=== PATIENT | male | born 1970 | race Caucasian/White ===

== ENCOUNTER 2017-04-23 10:38 | Emergency (ER) | payer MEDICARE, MEDICAID ==
[~2017-04-23] VITALS: Ht 175.3 cm; Wt 98.6 kg
[~2017-04-23 10:38] MED LIST: BENZ1LOZ30 PO; CITA20TA11 PO; GABA-338 PO; HYDR12.522 PO; IBUP-1984 PO; LEVO50TA8 PO; NORCO10T PO
[2017-04-23] MEDS ORDERED: HYDROcodone/acetaminophen 5mg/325mg tablet PO ONE (11:45)
[2017-04-23] MEDS ORDERED: naproxen 500mg tablet PO ONE (11:45)
[2017-04-23] MEDS ORDERED: HYDR-3965 PO (12:38)
[2017-04-23] MEDS ORDERED: IBUP-1986 PO (12:38)
[2017-04-23] MEDS ORDERED: ONDA4TAB12 PO (12:38)
[2017-04-23 12:56] VITALS: BP 170/116
== END 2017-04-23 12:47 | disposition home or self-care (01) ==
LOC: ER 10:39
DX: S22.41XA Multiple fractures of ribs, right side, initial encounter for closed fracture (principal); F12.10 Cannabis abuse, uncomplicated; F17.210 Nicotine dependence, cigarettes, uncomplicated; I10 Essential (primary) hypertension; G89.29 Other chronic pain; Z98.890 Other specified postprocedural states; Z79.899 Other long term (current) drug therapy; X50.1XXA Overexertion from prolonged static or awkward postures, initial encounter; Y93.89 Activity, other specified; Y92.89 Other specified places as the place of occurrence of the external cause; Y99.9 Unspecified external cause status
CPT/HCPCS: 71101; 99284

== ENCOUNTER 2019-04-01 08:54 | Emergency (ER) | payer MEDICARE, MEDICAID ==
[~2019-04-01] VITALS: Ht 175.3 cm; Wt 83.0 kg
[~2019-04-01 08:54] MED LIST changes: -CITA20TA11 PO; +CITA20TA28 PO; +IBUP-1986 PO; +ONDA4TAB12 PO
[2019-04-01] MEDS ORDERED: orphenadrine citrate 60mg/2ml inj. IM ONE (10:00)
[2019-04-01] MEDS ORDERED: ketorolac tromethamine 15mg/ml inj. IM ONE (10:00)
[2019-04-01] MEDS ORDERED: IBUP-1985 PO (10:01)
[2019-04-01] MEDS ORDERED: METH-360 PO (10:01)
[2019-04-01 10:40] VITALS: BP 167/107
== END 2019-04-01 10:45 | disposition home or self-care (01) ==
LOC: ER 08:54
DX: M54.5 Low back pain (principal); G89.29 Other chronic pain; I10 Essential (primary) hypertension; F12.90 Cannabis use, unspecified, uncomplicated; Z71.6 Tobacco abuse counseling; Z79.899 Other long term (current) drug therapy
CPT/HCPCS: 96372; 99284; J1885; J2360

== ENCOUNTER 2019-04-03 10:43 | Emergency (ER) | payer MEDICARE, MEDICAID ==
[~2019-04-03] VITALS: Ht 175.3 cm; Wt 80.0 kg
[~2019-04-03 10:43] MED LIST changes: +IBUP-1985 PO; +METH-360 PO
[2019-04-03] MEDS ORDERED: aspirin 325mg tablet PO ONE (11:00)
[2019-04-03] MEDS: nitroGLYCERIN 0.4mg SUBLingual tab SL PRN ×3 (11:12→11:22)
[2019-04-03 11:30] LABS: BASOPHILS # (AUTO) 0.1 X10'3 (0-0.2); BASOPHILS % (AUTO) 1.5 % (0-1); EOSINOPHILS # (AUTO) 0.5 X10'3 (0-0.9); EOSINOPHILS % (AUTO) 5.7 % (0-6); HEMATOCRIT 45.5 % (42.0-52.0); HEMOGLOBIN 15.8 g/dl (14.0-17.9); LYMPHOCYTES % (AUTO) 23.7 % (21-51); MEAN CORPUSCULAR HGB CONC 34.8 g/dL (33.0-36.5); MEAN PLATELET VOLUME 7.1 FL (7.4-10.4); MONOCYTES # (AUTO) 0.5 X10'3 (0-0.9); MONOCYTES % (AUTO) 5.8 % (2-12); NEUTROPHILS # (AUTO) 5.5 X10'3 (1.8-7.7); NEUTROPHILS % (AUTO) 63.3 % (42-75); PLATELET COUNT 319 X10'3 (140-440); RED BLOOD COUNT 4.95 X10'6 (4.70-6.10); RED CELL DISTRIBUTION WIDTH 13.9 % (11.5-14.5); WHITE BLOOD COUNT 8.6 X10'3 (4.5-11.0)
[2019-04-03] MEDS ORDERED: acetaminophen 325mg tablet PO ONE (11:30)
[2019-04-03 11:42] LABS: ALANINE AMINOTRANSFERASE 39 U/L (12-78); ALBUMIN 4.3 G/DL (3.4-5.0); ALBUMIN/GLOBULIN RATIO 1.3 (1.1-1.5); ALKALINE PHOSPHATASE 91 IU/L (46-116); ANION GAP 9 (8-16); ASPARTATE AMINO TRANSFERASE 23 U/L (10-37); BILIRUBIN,TOTAL 0.4 MG/DL (0.1-1.0); BLOOD UREA NITROGEN 13 MG/DL (7-18); BUN/CREATININE RATIO 10.1 (5.4-32.0); CALCIUM 9.1 MG/DL (8.5-10.1); CHLORIDE 102 MMOL/L (99-107); CREATININE 1.29 MG/DL (0.60-1.10); GLUCOSE 87 MG/DL (70-104); POTASSIUM 3.7 MMOL/L (3.5-5.1); SODIUM 140 MMOL/L (135-145); TOTAL CARBON DIOXIDE 28.9 MMOL/L (24-32); TOTAL PROTEIN 7.6 G/DL (6.4-8.2); eGFR 60 ML/MIN
[2019-04-03 12:01] VITALS: BP 152/104
== END 2019-04-03 12:02 | disposition home or self-care (01) ==
LOC: ER 10:44
DX: R07.89 Other chest pain (principal); I10 Essential (primary) hypertension; G89.29 Other chronic pain; F12.90 Cannabis use, unspecified, uncomplicated; Z98.890 Other specified postprocedural states; Z79.899 Other long term (current) drug therapy
CPT/HCPCS: 36415; 71045; 80053; 84484; 85025; 93005; 99284

== ENCOUNTER 2020-02-07 15:44 | Emergency (ER) | payer MEDICARE, MEDICAID ==
[~2020-02-07] VITALS: Ht 175.3 cm; Wt 85.5 kg
[2020-02-07 17:24] VITALS: BP 156/106
[2020-02-07] MEDS ORDERED: ketorolac trometh. 30mg/ml inj. IM ONE (17:25)
[2020-02-07] MEDS ORDERED: LORazepam 1 MG tablet PO ONE (18:00)
[2020-02-07] MEDS ORDERED: HYDROcodone/acetaminophen 5mg/325mg tablet PO ONE (18:00)
[2020-02-07] MEDS ORDERED: ondansetron 4mg rapidly disintigrating tab PO ONE (18:00)
== END 2020-02-07 18:24 | disposition home or self-care (01) ==
LOC: ER 15:44
DX: G89.29 Other chronic pain (principal); M54.5 Low back pain; I10 Essential (primary) hypertension; F32.9 Major depressive disorder, single episode, unspecified; F12.10 Cannabis abuse, uncomplicated; Z79.899 Other long term (current) drug therapy
CPT/HCPCS: 96372; 99284; J1885